=== PATIENT | male | born 1985 | race Caucasian/White ===

== ENCOUNTER 2019-04-12 21:47 | Emergency (ER) | payer MEDICARE, MEDICAID ==
[~2019-04-12] VITALS: Ht 188 cm; Wt 122.7 kg
[2019-04-13 00:31] VITALS: BP 138/68
== END 2019-04-13 00:42 | disposition home or self-care (01) ==
LOC: ED 04-13 00:36
DX: F20.0 Paranoid schizophrenia (principal); R41.3 Other amnesia; Z72.9 Problem related to lifestyle, unspecified; Z91.14 Patient's other noncompliance with medication regimen; Z75.9 Unspecified problem related to medical facilities and other health care
CPT/HCPCS: 36415; 70450; 80053; 80307; 85025; 99284